=== PATIENT | male | born 1985 | race Caucasian/White ===

== ENCOUNTER 2023-09-05 09:21 | Outpatient (CLI) | payer OTHER | END 2023-09-05 09:22 | disposition home or self-care (01) | LOC: SCSMRI 09:21 | PROVIDERS: ATTEND Nurse Practitioner Family | DX: H53.19 Other subjective visual disturbances (principal); R51.9 Headache, unspecified; C71.9 Malignant neoplasm of brain, unspecified; I61.9 Nontraumatic intracerebral hemorrhage, unspecified; R60.0 Localized edema | CPT/HCPCS: 70553 ==

== ENCOUNTER 2023-09-20 05:44 | Inpatient (IN) | payer OTHER ==
[2023-09-20] MEDS ORDERED: PHENYTOIN 100 MG ONE ×2 (05:59→08:02)
[2023-09-20] MEDS ORDERED: levETIRAcetam 500 MG (5 mL) VIAL ONE (05:59)
[2023-09-20] MEDS ORDERED: Mannitol 12.5 GM/50 ML ONE ×2 (06:00→09:14)
[2023-09-20] MEDS ORDERED: Lidocaine 4% PF 5 ML AMP ONE (06:00)
[2023-09-20] MEDS ORDERED: Nitroglycerin 50 MG/250 ML BOT 250 ML ONE (06:01)
[2023-09-20] MEDS ORDERED: Phenylephrine 40 MG/NS 250 ML 0 ML ONE (06:02)
[2023-09-20] MEDS ORDERED: fentaNYL PF 100 MCG/2 ML SYRINGE ONE (06:07)
[2023-09-20] MEDS ORDERED: PROPOFOL 0 ML ONE (06:07)
[2023-09-20] MEDS ORDERED: Rocuronium Bromide 10 MG/ML (10ML VIAL) ONE (06:08)
[2023-09-20] MEDS ORDERED: Ondansetron PF 4 MG/2 ML Vial ONE (06:08)
[2023-09-20] MEDS ORDERED: Lidocaine 1% PF 5 ML VIAL ONE (06:08)
[2023-09-20] MEDS ORDERED: Dexamethasone 20 MG/5 ML VIAL ONE (06:08)
[2023-09-20] MEDS ORDERED: Lidocaine 1% (PF) 30 ML VIAL ONE (06:10)
[2023-09-20] MEDS ORDERED: Bacitracin Zinc Ointment 30 gm TUBE ONE (06:10)
[2023-09-20] MEDS ORDERED: EPINEPHrine 1 MG/ML VIAL ONE (06:10)
[2023-09-20] MEDS ORDERED: Thrombin 5000 UNITS/5 ML VIAL ONE ×2 (06:11→08:28)
[2023-09-20] MEDS ORDERED: Lidocaine 1% MPF 2 ML VIAL ONE (06:13)
[2023-09-20] MEDS ORDERED: PROPOFOL 20 ML ONE (06:13)
[2023-09-20] MEDS ORDERED: ePHEDrine Sulfate 50 MG/10 ML VIAL ONE (06:13)
[2023-09-20] MEDS ORDERED: CEFAZOLIN 2 GM VIAL ONE (06:14)
[2023-09-20] MEDS ORDERED: Sodium Chloride 0.9% 100 ML ONE (06:14)
[2023-09-20] MEDS ORDERED: Sodium Chloride 0.9% 10 ML ONE (06:34)
[2023-09-20] MEDS ORDERED: Midazolam HCl 2 mg/2 ml Vial ONE (06:34)
[2023-09-20] MEDS ORDERED: Phenylephrine 10 MG/ML VIAL ONE (07:10)
[2023-09-20] MEDS ORDERED: Propofol 1,000 MG/100 ML VIAL IV ONE (07:10)
[2023-09-20] MEDS ORDERED: Fentanyl 250 MCG/5 ML VIAL ONE (08:02)
[2023-09-20] MEDS ORDERED: SUGAMMADEX SODIUM 200 MG/2 ML VIAL ONE (09:15)
[2023-09-20 09:25] LABS: Anion Gap 13 mmol/L (10-20); BUN (Urea Nitrogen) 24 mg/dL (8.9-20.6); Calc. Creatinine Clearance 161 mL/min (70-130); Calcium 8.2 mg/dL (7.8-10.44); Carbon Dioxide 21 mmol/L (22-29); Chloride 104 mmol/L (98-107); Estimated GFR 114; Glucose 150 mg/dL (70-105); Potassium 4.5 mmol/L (3.5-5.1); Sodium 133 mmol/L (136-145)
[2023-09-20] MEDS ORDERED: Ondansetron PF 4 MG/2 ML Vial IVP PRN (09:53)
[2023-09-20] MEDS ORDERED: Morphine 2 MG/ML VIAL SLOW IVP PRN (09:53)
[2023-09-20] MEDS ORDERED: Labetalol HCl 100 MG/20 ML VIAL SLOW IVP PRN ×2 (09:53→11:33)
[2023-09-20] MEDS ORDERED: diphenhydrAMINE 50 MG/ML VIAL IVP PRN (09:53)
[2023-09-20] MEDS ORDERED: hydrALAZINE 20 MG/ML VIAL SLOW IVP PRN (09:53)
[2023-09-20] MEDS ORDERED: Docusate 100 MG CAP PO PRN (09:53)
[2023-09-20] MEDS: Sodium Chloride 0.9% 1,000 ML IV SCH (12:00)
[2023-09-20 12:57] VITALS: BMI 28.3
[2023-09-20] MEDS: Morphine 4 MG/ML VIAL SLOW IVP PRN (14:30)
[2023-09-20] MEDS: CEFAZOLIN 2 GM in Sodium Chloride 0.9% 100 ML IVPB SCH (14:31)
[2023-09-20] MEDS: Dexamethasone 4 MG TAB PO SCH (14:31)
[2023-09-20] MEDS: Famotidine 20 MG TAB PO SCH (20:58)
[2023-09-20] MEDS: Phenytoin Extended Release 100 MG CAP PO SCH (20:58)
[2023-09-20] MEDS: Acetaminophen/Codeine 30-300mg Tablet PO PRN (21:00)
[2023-09-21 04:20] LABS: #Monocytes 1.9 thou/uL (0.11-0.59); #Neutrophils 14.5 thou/uL (1.40-6.50); %Basophils 0.1 % (0.0-1.0); %Eosinophils 0.1 % (0.0-10.0); %Lymphocytes 12.7 % (21.0-51.0); %Monocytes 10.2 % (0.0-10.0); %Neutrophils 76.2 % (42.0-75.0); Hematocrit 41.1 % (42.0-52.0); Mean Corpuscular HGB CONC 34.1 g/dL (32.0-36.0); Mean Corpuscular Hemoglobin 33.2 pg (27.0-31.0); Mean Corpuscular Volume 97.4 fl (78.0-98.0); Mean Platelet Volume 9.9 fL (7.4-10.4); Platelet Count 238 10x3/uL (130-400); RBC Distribution Width 13.3 % (11.5-14.5); Red Blood Cell (RBC) Count 4.22 mill/uL (4.70-6.10)
[2023-09-21 04:51] LABS: Anion Gap 11 mmol/L (10-20); BUN (Urea Nitrogen) 17 mg/dL (8.9-20.6); Calc. Creatinine Clearance 143 mL/min (70-130); Calcium 8.7 mg/dL (7.8-10.44); Carbon Dioxide 29 mmol/L (22-29); Chloride 102 mmol/L (98-107); Estimated GFR 104; Glucose 120 mg/dL (70-105); Potassium 4.8 mmol/L (3.5-5.1); Sodium 137 mmol/L (136-145)
[2023-09-21] MEDS: Acetaminophen/Codeine 30-300mg Tablet PO PRN (05:22)
[2023-09-21] MEDS ORDERED: Acetaminophen 500 MG TAB PO PRN (07:17)
[2023-09-22 08:28] VITALS: BP 131/77; TEMP 98.3
[2023-09-27 08:29] LABS: Actual Bicarbonate (HCO3a) 21.7 mEq/L (22-28); Analyzer IN Cardio OR; Base Excess (BEa) -2.4 mEq/L (-2.0 to +3.0); CO2 Tension 35.7 mmHg (35.0-45.0); Calcium, Ionized (arterial) 1.12 mmol/L (1.12-1.30); Carboxyhemoglobin (COHb) 0.8 gm% (0.0-3.0); Hematocrit-ABG 41 % (42.0-52.0); Hemoglobin (Hb) 14.1 g/dL (14.0-18.0); O2 Tension (PaO2), arterial 407.8 mmHg (80.0-100.0); Puncture Site Arterial Line; pH, Arterial 7.402 (7.35-7.45)
== END 2023-09-22 10:50 | disposition home or self-care (01) | DRG 27 ==
LOC: SURG A 05:44 → CCU 11:54 → SJJU 09-21 15:59
PROVIDERS: ADMIT Neurological Surgery; ATTEND Neurological Surgery
PROC: 00B70ZZ Excision of Cerebral Hemisphere, Open Approach (ICD-10-PCS; principal; 2023-09-20)
PROC: 3E033XZ Introduction of Vasopressor into Peripheral Vein, Percutaneous Approach (ICD-10-PCS; 2023-09-20)
DX: D49.6 Neoplasm of unspecified behavior of brain (principal); H53.8 Other visual disturbances; G93.9 Disorder of brain, unspecified
CPT/HCPCS: 36415; 36416; 80048; 82805; 85025; 86850; 86900; 86901; 88307; 88331; A6258; C1713; C1889; J0171; J1100; J1165; J1953; J2001; J2150; J2250; J2270; J2371; J2405; J2704; J3010; J3490; J7050; J8540